=== PATIENT | male | born 1985 | race African-American/Black ===

== ENCOUNTER 2020-04-27 06:09 | Emergency (ER) | payer OTHER ==
[~2020-04-27] VITALS: Ht 188 cm; Wt 88.2 kg
[2020-04-27] MEDS ORDERED: FOLI0.4T6 PO (06:18)
[2020-04-27 07:29] VITALS: BP 125/74
[2020-04-27] MEDS ORDERED: AZITHROMYCIN 500 MG TABLET PO ONE (07:30)
[2020-04-27] MEDS ORDERED: CefTRIAXone SODIUM 1 GM/VIAL IM ONE (07:30)
[2020-04-27] MEDS ORDERED: LIDOCAINE/PF 1% 2 ML VIAL IM ONE (07:30)
== END 2020-04-27 08:05 | disposition home or self-care (01) ==
LOC: EMS 06:20
DX: N34.2 Other urethritis (principal); F17.210 Nicotine dependence, cigarettes, uncomplicated
CPT/HCPCS: 96372; 99283; J0696; J3490

== ENCOUNTER 2020-10-10 05:11 | Emergency (ER) | payer OTHER ==
[~2020-10-10] VITALS: Ht 188 cm; Wt 79.5 kg
[~2020-10-10 05:11] MED LIST: FOLI0.4T6 PO
[2020-10-10 06:04] LABS: APPEARANCE,URINE CLOUDY (CLEAR); BILIRUBIN,URINE NEGATIVE (NEGATIVE); GLUCOSE, URINE (UA) NEGATIVE (NEGATIVE); KETONES,URINE NEGATIVE (NEGATIVE); LEUKOCYTE ESTERASE ,URINE LARGE (NEGATIVE); NITRATE,URINE NEGATIVE (NEGATIVE); OCCULT BLOOD,URINE SMALL (NEGATIVE); PROTEIN,URINE NEGATIVE (NEGATIVE); UROBILINOGEN,URINE 0.2 mg/dL (<=1.0)
[2020-10-10 06:31] LABS: BACTERIA,URINE Rare /HPF (None Seen); RBC,URINE 0-2 /HPF (0-2); SQUAMOUS EPITHELIAL CELL,UR Rare /LPF (None Seen); WBC,URINE 26-50 /HPF (0-5)
[2020-10-10 07:08] VITALS: BP 149/71
[2020-10-10] MEDS ORDERED: LIDOCAINE/PF 1% 2 ML VIAL IM ONE (07:15)
[2020-10-10] MEDS ORDERED: AZITHROMYCIN 500 MG TABLET PO ONE (07:15)
[2020-10-10] MEDS ORDERED: CefTRIAXone SODIUM 1 GM/VIAL IM ONE (07:15)
== END 2020-10-10 07:26 | disposition home or self-care (01) ==
LOC: EMS 05:12
DX: N34.2 Other urethritis (principal); F17.210 Nicotine dependence, cigarettes, uncomplicated; F12.90 Cannabis use, unspecified, uncomplicated; Z88.0 Allergy status to penicillin
CPT/HCPCS: 81001; 87086; 96372; 99283; A9575; J0696; J3490

== ENCOUNTER 2021-02-10 22:07 | Emergency (ER) | payer OTHER ==
[~2021-02-10] VITALS: Ht 188 cm; Wt 85.5 kg
[2021-02-10 22:10] VITALS: BP 146/85
[2021-02-10] MEDS ORDERED: CefTRIAXone SODIUM 1 GM/VIAL IM ONE (22:45)
[2021-02-10] MEDS ORDERED: LIDOCAINE/PF 1% 2 ML VIAL IM ONE (22:45)
[2021-02-10] MEDS ORDERED: AZITHROMYCIN 500 MG TABLET PO ONE (22:45)
[2021-02-10] MEDS ORDERED: PRENATAL PO (22:59)
[2021-02-10] MEDS ORDERED: ALBU8HFA IH (22:59)
== END 2021-02-10 23:02 | disposition home or self-care (01) ==
LOC: EMS 22:10
DX: N34.2 Other urethritis (principal); F17.210 Nicotine dependence, cigarettes, uncomplicated; F12.90 Cannabis use, unspecified, uncomplicated
CPT/HCPCS: 87491; 87591; 96372; 99283; J0696; J3490; Q9967